=== PATIENT | female | born 1965 | race Two or more races ===

== ENCOUNTER 2022-06-03 13:13 | Emergency (ER) | payer OTHER ==
[~2022-06-03] VITALS: Ht 162.6 cm; Wt 74.8 kg
[2022-06-03] MEDS ORDERED: PANTOPRAZOLE SO40 MG PO (13:55)
[2022-06-03] MEDS ORDERED: FAMOTIDINE40 MG PO (13:55)
== END 2022-06-03 19:42 | disposition home or self-care (01) ==
LOC: ER 13:13
DX: R10.13 Epigastric pain (principal); K21.9 Gastro-esophageal reflux disease without esophagitis; Z87.19 Personal history of other diseases of the digestive system; K25.9 Gastric ulcer, unspecified as acute or chronic, without hemorrhage or perforation

== ENCOUNTER 2022-09-21 18:20 | Inpatient (IN) | payer OTHER ==
[~2022-09-21] VITALS: Ht 167.6 cm; Wt 72.6 kg
[~2022-09-21 18:20] MED LIST: FAMOTIDINE40 MG PO; PANTOPRAZOLE SO40 MG PO
[2022-09-21] MEDS ORDERED: PROVENTIL HFA6.7 GM (18:24)
[2022-09-21] MEDS ORDERED: MONTELUKAST SOD10 MG (18:24)
--- NOTE | 2022-09-21 18:26 | NUR ---
PTE ALERTA Y ORIENTADA POR PEACE ESFERAS CON BUEN PATRON RESPIRATORIO. REFIERE QUE TIENE DOLOR ABDOMINAL DESDE GRETCHEN, CON UN EP DE VOMITOS
--- NOTE | 2022-09-21 19:05 | NUR ---
PACIENTE EVALUADA POR DR LEGER QUIEN ORDENA TRATAMIENTO MEDICO SE LE ORIENTA A PACIENTE SOBRE EL MISMO Y VERBALIZA ENTENDER. SE LE COLECTAN MUESTRAS D LABORATORIO Y SE CANALIZA BAJO MEDIDAS ASEPTICAS. SE ADMINISTRAN MEDICAMENTOS BAJO MEDIDAS ASEPTICAS. PENDIENTE SONO EL CUAL FUE NOTIFICADO
== END 2022-09-23 15:53 | disposition home or self-care (01) | DRG 446 ==
LOC: ER 18:20 → MEDJ 21:26
PROVIDERS: ADMIT Specialist; ATTEND Specialist
DX: K80.00 Calculus of gallbladder with acute cholecystitis without obstruction (principal); K21.9 Gastro-esophageal reflux disease without esophagitis; Z20.822 Contact with and (suspected) exposure to COVID-19